=== PATIENT | male | born 1960 | race Caucasian/White ===

== ENCOUNTER → 2020-05-13 | Outpatient (CLI) | payer BC ==
[~2020-05-13] MED LIST: ATENOLOL25 MG PO; ATORVASTATIN CA40 MG PO; COZAAR100 MG PO; DAILY VITE1 EACH PO; ECOTRIN81 MG PO; IBUPROFEN800 MG PO; LASIX20 MG PO; NITROGLYCERIN0.4 MG SL; PERCOCET 5/325 T1 EA PO; PERCOCET 7.5-31 EACH PO; POTASSIUM CHLO20 ME1 PO; PROZAC20 MG PO
[2020-05-13 11:31] LABS: RED BLOOD COUNT 4.45 M/UL (4.20-5.50); WHITE BLOOD COUNT 8.2 K/UL (4.5-11.0)
[2020-05-13 11:53] LABS: BUN/CREATININE RATIO 31 (0-10)
== END ==
LOC: OPSV2 10:00
PROVIDERS: Orthopaedic Surgery
DX: Z01.818 Encounter for other preprocedural examination (principal); S82.862A Displaced Maisonneuve's fracture of left leg, initial encounter for closed fracture; X58.XXXA Exposure to other specified factors, initial encounter
CPT/HCPCS: 36415; 80048; 85027; 93005

== ENCOUNTER → 2020-05-16 | Day surgery (SDC) | payer BC ==
[~2020-05-16] VITALS: Ht 170.2 cm; Wt 136.1 kg
== END | disposition home or self-care (01) ==
LOC: OR 07:27
PROVIDERS: Orthopaedic Surgery
PROC: 0QSH04Z Reposition Left Tibia with Internal Fixation Device, Open Approach (ICD-10-PCS; 2020-05-16)
PROC: 3E0T3BZ Introduction of Anesthetic Agent into Peripheral Nerves and Plexi, Percutaneous Approach (ICD-10-PCS; 2020-05-16)
PROC: 3E0T3BZ Introduction of Anesthetic Agent into Peripheral Nerves and Plexi, Percutaneous Approach (ICD-10-PCS; 2020-05-16)
PROC: 0QHK04Z Insertion of Internal Fixation Device into Left Fibula, Open Approach (ICD-10-PCS; principal; 2020-05-16 10:30)
DX: S82.862A Displaced Maisonneuve's fracture of left leg, initial encounter for closed fracture (principal); G89.18 Other acute postprocedural pain; I11.0 Hypertensive heart disease with heart failure; E78.5 Hyperlipidemia, unspecified; Z79.82 Long term (current) use of aspirin; Z79.899 Other long term (current) drug therapy; Z88.5 Allergy status to narcotic agent; Z88.1 Allergy status to other antibiotic agents; Z20.822 Contact with and (suspected) exposure to COVID-19; Z87.891 Personal history of nicotine dependence; W11.XXXA Fall on and from ladder, initial encounter
CPT/HCPCS: 73610; 76000; C1713; J0171; J0690; J1100; J2001; J2250; J2405; J2704; J2795; J3010; J7120

== ENCOUNTER → 2020-06-19 | Outpatient (CLI) | payer BC | LOC: HEART CORB 10:00 | DX: I25.118 Atherosclerotic heart disease of native coronary artery with other forms of angina pectoris (principal); R06.02 Shortness of breath | CPT/HCPCS: 78452; A9502; J2785 ==